=== PATIENT | female | born 1935 | race Caucasian/White ===

== ENCOUNTER → 2017-08-30 10:45 | Outpatient (CLI) | payer MEDICARE, SELFPAY ==
--- NOTE | 2017-08-30 10:51 | MM_ITS ---
MM Dig SC mamm unilat RT CAD CAD Screening ORDERING PHYSICIAN : Alex Rao MD PATIENT AGE: 81 years GENDER: Female HISTORY Routine screening. Right breast cancer with mastectomy.. 81-year-old patient very kyphotic difficult to position. No hormones. No new complaints. Noncontributory family history. COMPARISON: Left mammogram: August 2016. Bilateral mammogram July 2013 TECHNIQUE: Standard CC & MLO images were obtained left breast. . In addition axillary cc view left breast. R2 CAD reviewed. FINDINGS LEFT BREAST: Minimal residual fibroglandular elements. No significant change since previous studies. No dominant mass nor suspicious calcifications. . Follow-up left mammogram 1 year recommended IMPRESSION: Stable left breast. No areas of concern Follow-up in one year BI-RADS Category: 1 Negative RECOMMENDED FOLLOW-UP: 1YR - 1 YEAR FOLLOW-UP (A letter has been sent to the patient regarding results of the study.)
== END ==
PROVIDERS: Family Provider Family Medicine; PCP Family Medicine; Visit Provider Internal Medicine Medical Oncology
DX: Z12.31 Encounter for screening mammogram for malignant neoplasm of breast (principal); C50.911 Malignant neoplasm of unspecified site of right female breast
CPT/HCPCS: 77067

== ENCOUNTER → 2018-09-05 09:05 | Outpatient (CLI) | payer MEDICARE, SELFPAY ==
--- NOTE | 2018-09-05 09:15 | MM_ITS ---
MM Dig SC mamm unilat LT CAD Ordering Physician: Alex Rao MD Patient Age: 82 years Female COMPARISON: August 20172016, July 2013 INDICATION: Left mammogram, screening. History of right breast cancer with right mastectomy. No new hormones. No new complaints. Noncontributory family history. TECHNIQUE: MLO and cc view left breast along with axillary cc view FINDINGS: Lower density breast with moderate generalized fatty replacement. Minimal residual fibroglandular elements towards upper-outer quadrant. No significant new findings at the left breast. Stable overall architecture. IMPRESSION: Stable left breast./Right mastectomy No new areas concern. Left breast Minimal residual fibroglandular elements with lower density left breast BI-RADS Category: 1 Negative RECOMMENDED FOLLOW-UP: 1YR 1 YEAR FOLLOW-UP A letter has been sent to the patient regarding results of the study.)
--- NOTE | 2018-09-05 09:16 | XR_ITS ---
XR DEXA axial skeleton HISTORY: ITS.REASON: POST MENOPAUSAL SCREENING ORDERING PHYSICIAN: Alex Rao MD PATIENT AGE: 82 years COMPARISON: 11/09/2015 FINDINGS: The BMD measured at the Total Left femoral neck is 0.657 g/cm squared with a T score of -2.8. This is considered Osteoporotic according to the World Health Organization criteria. Fracture risk is High. Treatment is advised. The L1-L4 density has a T score of 2.9. There does appear to be sclerosis in the lumbar spine. The lumbar density has increased by 6.8%. The hip density has decreased by 2.5%. Scanogram shows lucencies in the femoral heads on both sides and may be due to subarticular cyst IMPRESSION: Osteoporosis with high fracture risk. Treatment is advised. Suggest follow-up exam August 2019
== END ==
PROVIDERS: PCP Family Medicine; Visit Provider Internal Medicine Medical Oncology
DX: Z78.0 Asymptomatic menopausal state (principal); Z12.31 Encounter for screening mammogram for malignant neoplasm of breast
CPT/HCPCS: 77067; 77080

== ENCOUNTER → 2019-09-10 10:52 | Outpatient (CLI) | payer MEDICARE, SELFPAY ==
--- NOTE | 2019-09-10 10:57 | MM_ITS ---
PROCEDURE: MM DIG SC MAMM UNILAT LT CAD Digital Breast Tomosynthesis Included CLINICAL INDICATION: SCREENING History of right breast cancer with mastectomy COMPARISON: DMSUL DIG MAMM-SCREEN UNI-LT W/CAD from 08/28/2016 SCUNIRT MM Dig SC mamm unilat RT CAD from 08/30/2017 DIG MAMM-SCREEN SHAYNE from 09/05/2018 TECHNIQUE: Standard CC and MLO images and 3D Tomosynthesis was obtained. R2 CAD reviewed. FINDINGS: Average fibroglandular tissue. No malignant appearing mass or malignant-appearing microcalcification. IMPRESSION: BI-RAD Category: 1 Negative FOLLOW-UP: 1YR 1 Year Follow-up (A letter has been sent to the patient regarding results of the study.) Dictated by: Edison Pyle MD 09/12/2019 10:35 Electronically signed by Edison Pyle MD in [place] 09/12/2019 10:35
== END ==
PROVIDERS: PCP Family Medicine; Visit Provider Family Medicine
DX: Z12.31 Encounter for screening mammogram for malignant neoplasm of breast (principal)
CPT/HCPCS: 77063; 77067

== ENCOUNTER → 2020-03-11 12:03 | Outpatient (CLI) | payer MEDICARE, SELFPAY ==
--- NOTE | 2020-03-11 12:11 | XR_ITS ---
PROCEDURE: XR SHOULDER LT MIN 2V CLINICAL INDICATION: LT SHOULDER PAIN Pain following injury COMPARISON: CR XR HUMERUS LT from 03/11/2020 CR XR RIBS LT MIN 3V W CXR1V from 03/11/2020 FINDINGS: There is anterior some subglenoid dislocation of the humeral head. There is a ill-defined bony fragment lateral to the superior aspect of the glenoid consistent with an avulsion fracture. With unknown bone of origin. This measures approximately [address] may provide further evaluation. The mid and distal aspect of the humerus has an unremarkable appearance. IMPRESSION: Anterior inferior humeral head dislocation. There is avulsion fracture fragment lateral to the glenoid of unknown bone of origin. Postreduction CT may provide further evaluation. Dictated by: Edison Pyle MD 03/11/2020 13:13 Edison Pyle MD in [place] 03/11/2020 13:13
--- NOTE | 2020-03-11 12:11 | XR_ITS ---
PROCEDURE: XR RIBS LT MIN 3V W CXR1V CLINICAL INDICATION: LT RIB PAIN COMPARISON: No exams were available for comparison FINDINGS: Frontal view of the chest shows no acute finding. There is thoracolumbar curvature convex right. Calcified granulomas present in the right lower lobe. Patchy density is present in the left lung base and may be due to an area of atelectasis or infiltrate. There are old left-sided rib fractures but no acute fracture apparent. There is inferior dislocation of the humeral head with an avulsion fracture noted lateral to the glenoid. IMPRESSION: 1. No acute rib fracture. 2. Left basilar atelectasis 3. Scoliosis 4. Inferior dislocation of the humeral head with avulsion fracture Dictated by: Edison Pyle MD 03/11/2020 13:16 Edison Pyle MD in [place] 03/11/2020 13:16
--- NOTE | 2020-03-11 12:12 | XR_ITS ---
PROCEDURE: XR ELBOW LT MIN 3V CLINICAL INDICATION: LT ARM PAIN Injury with pain COMPARISON: No exams were available for comparison FINDINGS: No fracture or dislocation. No lytic or blastic change. There is normal mineralization. Minimal osteoarthritic changes are present. No displaced fat pad Other findings:None. IMPRESSION: No acute findings. Dictated by: Edison Pyle MD 03/11/2020 13:09 Edison Pyle MD in [place] 03/11/2020 13:09
== END ==
PROVIDERS: PCP Family Medicine; Visit Provider Physician Assistant
DX: R07.81 Pleurodynia (principal)
CPT/HCPCS: 71101; 73030; 73060; 73080

== ENCOUNTER 2020-03-11 13:46 | Emergency (ER) | payer MEDICARE, SELFPAY ==
[2020-03-11] VITALS (20 sets, daily range): BP systolic 145–236; BP diastolic 81–144; PULSE 64–122; RESP 8–22; TEMP 36.6–36.7; O2SAT 71–100; BMI 25.0
--- NOTE | 2020-03-11 14:08 | HMH.EDGENADL ---
ED Disposition Clinical Impression: Avulsion fracture Shoulder dislocation Qualifiers: Encounter type: initial encounter Laterality: left Qualified Code(s): S43.005A - Unspecified dislocation of left shoulder joint, initial encounter Disposition: Home, Self-Care Condition on Discharge: Fair Instructions: DI for Moderate Sedation Additional Instructions: Follow up with Dr. Hodge early next week for re-evaluation. Do NOT take your arm out of the sling prior to seeing Dr. Hodge next week. Prescriptions: Hydrocodone/Acetaminophen [[place] 5-325 Tablet] 1 each PO Q4-6H PRN #9 tab PRN Reason: pain Prescription Printed Referrals: Nanette Lowery MD [Physician] - 03/15/20 - Critical Care Critical Care Time: No Attestation: On , the high probability of a clinically significant, sudden or life threatening deterioration of the following system(s) required my full and direct attention, intervention and personal management. The time I documented below is in addition to time spent performing reported procedures but includes the following listed in this critical care notation. Medical Decision Making - Medical Records Medical records reviewed: Yes: I reviewed the patient's medical records. - Trevor Inquiry Pt receiving controlled substance: Yes Trevro was queried for this patient: No Reason not queried -: Emergent pt cond-no time Risks and benefits of using a controlled substance: were discussed with pt by me Vital Signs: 03/11/20 13:57 03/11/20 14:17 03/11/20 14:23 Temperature 98 F 98 F Temperature Source Oral Oral Pulse Rate [Radial] 71 101 H 102 H Respiratory Rate 18 20 20 Blood Pressure Blood Pressure [Right Arm] 212/117 H 211/111 H 211/111 H Blood Pressure Mean [Right Arm] 148 144 144 Blood Pressure Source [Right Arm] Automatic Cuff Blood Pressure Position [Right Arm] Sitting Supine Sitting 02 Sat by Pulse Oximetry 98 100 95 Oxygen Delivery Method Room Air Room Air Nasal Cannula Oxygen Flow Rate (LPM) 2 03/11/20 14:45 03/11/20 14:50 03/11/20 14:55 Temperature 98 F Temperature Source Oral Pulse Rate [Radial] 102 H 120 H 122 H Respiratory Rate 18 18 10 L Blood Pressure Blood Pressure [Right Arm] 211/111 H 236/144 H 220/118 H Blood Pressure Mean [Right Arm] 144 174 152 Blood Pressure Source [Right Arm] Blood Pressure Position [Right Arm] Sitting Sitting Sitting 02 Sat by Pulse Oximetry 98 98 98 Oxygen Delivery Method Nasal Cannula Nasal Cannula Nasal Cannula Oxygen Flow Rate (LPM) 2 2 4 03/11/20 15:00 03/11/20 15:05 03/11/20 15:10 Temperature Temperature Source Pulse Rate [Radial] 104 H 87 77 Respiratory Rate 8 L 14 16 Blood Pressure 210/119 H Blood Pressure [Right Arm] 215/116 H 210/119 H 218/108 H Blood Pressure Mean [Right Arm] 149 149 144 Blood Pressure Source [Right Arm] Blood Pressure Position [Right Arm] Sitting Sitting Sitting 02 Sat by Pulse Oximetry 97 98 98 Oxygen Delivery Method Nasal Cannula Nasal Cannula Nasal Cannula Oxygen Flow Rate (LPM) 4 4 4 03/11/20 15:15 03/11/20 15:20 03/11/20 15:30 Temperature Temperature Source Pulse Rate [Radial] 83 68 71 Respiratory Rate 16 22 Blood Pressure Blood Pressure [Right Arm] 218/108 H 198/101 H 182/96 H Blood Pressure Mean [Right Arm] 144 133 124 Blood Pressure Source [Right Arm] Automatic Cuff Blood Pressure Position [Right Arm] Sitting Sitting Sitting 02 Sat by Pulse Oximetry 96 98 Oxygen Delivery Method Nasal Cannula Oxygen Flow Rate (LPM) 4 Orders (Tests/Meds): ED MEDICATIONS Discontinued Medications Generic Name Dose Route Start Last Admin Trade Name Freq PRN Reason Stop Dose Admin Etomidate 10 mg 03/11/20 14:07 03/11/20 14:45 Etomidate 40mg/20ml Vial IV 03/11/20 14:08 10 mg ONCE ONE Administration Sodium Chloride 1,000 mls @ 999 mls/hr 03/11/20 14:30 03/11/20 14:45 Sod Chlor 0.9% 1000ml Bag IV 03/11/20 15:30 999 mls/hr .Q1H1M LIAT Admin
--- NOTE | 2020-03-11 14:52 | PC.NURSE ---
pt with snoring resp jaw thrust performed. athletic monitor ST with michelley
--- NOTE | 2020-03-11 15:01 | XR_ITS ---
PROCEDURE: XR SHOULDER LT 1V CLINICAL INDICATION: post reduction Shoulder dislocation COMPARISON: CR XR SHOULDER LT MIN 2V from 03/11/2020 FINDINGS: There remains anterior infra glenoid dislocation of the humeral head with possible avulsion fracture at the glenoid region. IMPRESSION: No change shoulder dislocation Dictated by: Edison Pyle MD 03/11/2020 16:30 Edison Pyle MD in [place] 03/11/2020 16:30
--- NOTE | 2020-03-11 15:10 | PC.NURSE ---
pt awake, alert, continues to c/o pain lt shoulder
--- NOTE | 2020-03-11 15:30 | PC.NURSE ---
family at bedside updated on plan of care
--- NOTE | 2020-03-11 15:32 | PC.NURSE ---
Dr Lowery called and consulted by Dr Maddox
--- NOTE | 2020-03-11 16:03 | HMH.ORTHOCON ---
*Admission Date: 03/11/20 *Reason for consult:: L shoulder dislocation *History of present illness: 84yo F presents to the ED after being seen by her PCP for L shoulder pain. She fell last night after tripping on an air vent and landing on her left side. She had immediate pain and difficulty using the L shoulder, but no open wounds, no numbness/tingling in the LUE. She tried to treat this at home but her pain persisted today, so she saw her primary care provider. X-rays were done that revealed L glenohumeral joint dislocation. I was called in my office, and I recommended presentation to the ER for sedation and reduction. Closed reduction was attempted x2 by the ER with morphine and etomidate; they were unsuccessful and deeper sedation was not attempted due to decreased respirations in the patient. Currently the patient reports L shoulder pain, no numbness/tingling in the LUE, unable to lift the L arm. No prior injuries to or surgeries on this shoulder reported. She does not take anticoagulants and says she is otherwise in good health. [facility] History I have reviewed the patient's past medical history: Yes Medical History: Reports:: Cancer (breast) *Have you ever received a pneumonia vaccine?: Yes *Have you received a flu vaccine this season?: Yes - *Social History *Occupational Status:: retired *Travel in the last 8 weeks: None Family Hx:: Non-contributory Review of Systems - Review of Systems Review of systems:: pertinent systems reviewed and negative unless documented below Meds Home Medications Medication Instructions Recorded Confirmed Type Hydrocodone/Acetaminophen [[place] 1 each PO Q4-6H PRN #9 tab 03/11/20 Rx 5-325 Tablet] Allergies Allergy/AdvReac Type Severity Reaction Status Date / Time No Known Allergies Allergy Verified 03/11/20 14:03 Exam Vital signs and Labs for Last 24 Hours: Temp Pulse Resp BP Pulse Ox 98 F 87 22 181/86 H 98 03/11/20 14:45 03/11/20 15:30 03/11/20 15:30 03/11/20 15:30 03/11/20 15:30 I & O for Last 24 hours: Intake & Output 03/09/20 03/10/20 03/11/20 03/12/20 11:59 11:59 11:59 11:59 Weight 137 lb - Constitutional no acute distress, average body habitus - *Routine HEENT Exam Head: Present: normocephalic Eye: Present: EOMI ENT: Present: mucous membranes moist Comments: bruising and superficial laceration to bottom lip and bridge of nose - *Routine Neck Exam Present: supple, trachea midline - *Routine Respiratory Exam Absent: respiratory distress, wheezes - *Routine Cardiovascular Exam Present: RRR - *Routine Abdominal Exam Present: soft. Absent: tenderness - *Routine Extremities Exam Comments: L shoulder with mild deformity, humeral head not palpable patient unable to lift L arm SILT distally LUE in m/r/u distributions AIN/PIN/ulnar nerves motor intact LUE palpable radial pulse L wrist, fingers pink/warm - *Routine Skin Exam Present: intact, warm - *Routine Neurological Exam Present: alert, oriented X3, moving all extremities, normal tone, vision grossly intact, hearing grossly intact, normal speech. Absent: sensory deficit, motor deficit, altered mental status Results - Labs Labs: All other labs normal. - Diagnostic results Shoulder x-ray: image reviewed (anteroinferior glenohumeral dislocation L shoulder; possible small avulsion fragment, most likely from greater tuberosity) Assessment and Plan (1) Avulsion fracture Status: Acute Category: Medical Code(s): T14.8XXA - Other injury of unspecified body region, initial encounter (2) Shoulder dislocation Status: Acute Qualifiers: Encounter type: initial encounter Laterality: left Qualified Code(s): S43.005A - Unspecified dislocation of left shoulder joint, initial encounter Category: Medical Code(s): S43.006A - Unspecified dislocation of unspecified shoulder joint, initial encounter - Assessment and plan all Dx Assessment and Plan fo
--- NOTE | 2020-03-11 16:18 | XR_ITS ---
PROCEDURE: XR SHOULDER LT 1V CLINICAL INDICATION: dislocation Attempted postreduction COMPARISON: CR XR SHOULDER LT MIN 2V from 03/11/2020 CR XR SHOULDER LT 1V from 03/11/2020 CR XR SHOULDER LT MIN 2V from 03/11/2020 FINDINGS: 1636 hours Axillary views of the left shoulder show persisted infra glenoid dislocation of the humeral head. IMPRESSION: Persistent infra glenoid dislocation Dictated by: Edison Pyle MD 03/12/2020 05:25 Edison Pyle MD in [place] 03/12/2020 05:25
--- NOTE | 2020-03-11 16:50 | PC.NURSE ---
dr pickett at bedside, anesthesia at bedside
--- NOTE | 2020-03-11 16:50 | PC.NURSE ---
100mg lidocaine ivp per bill purcell
--- NOTE | 2020-03-11 16:55 | PC.NURSE ---
propofol 60mg ivp per bill purcell
--- NOTE | 2020-03-11 16:57 | XR_ITS ---
PROCEDURE: XR SHOULDER LT MIN 2V CLINICAL INDICATION: post reduction Follow-up shoulder dislocation COMPARISON: CR XR SHOULDER LT MIN 2V from 03/11/2020 CR XR SHOULDER LT 1V from 03/11/2020 CR XR SHOULDER LT 1V from 03/11/2020 FINDINGS: There has been interval reduction of the left shoulder dislocation. Humeral head now is in good position. Previously there was a calcific density lateral to the glenoid. This is not well delineated on these images and may be better evaluated with CT if clinically desired. IMPRESSION: Interval reduction of left shoulder dislocation as described Dictated by: Edison Pyle MD 03/11/2020 17:28 Edison Pyle MD in [place] 03/11/2020 17:28
--- NOTE | 2020-03-11 17:12 | PC.NURSE ---
pt awake alert, taking sips of sprite
--- NOTE | 2020-03-11 17:20 | PC.NURSE ---
sling applied to lt arm
--- NOTE | 2020-03-11 17:20 | HMH.PROC ---
[facility] Procedure Note Procedure Note:: Date of Procedure: March 11, 2020 Pre-procedure diagnosis: L shoulder glenohumeral joint dislocation Post-procedure diagnosis: same Procedure: closed reduction L shoulder glenohumeral joint dislocation Performed by: Nanette Lowery MD Air Conditioning Specialist/s: none Anesthesia: IV sedation; performed by PERSONAL [employer]ES SALES EXECUTIVE Estimated Blood Loss: none History of present illness: 84yo F presents to the ED after being seen by her PCP for L shoulder pain. She fell last night after tripping on an air vent and landing on her left side. She had immediate pain and difficulty using the L shoulder, but no open wounds, no numbness/tingling in the LUE. She tried to treat this at home but her pain persisted today, so she saw her primary care provider. X-rays were done that revealed L glenohumeral joint dislocation. I was called in my office, and I recommended presentation to the ER for sedation and reduction. Closed reduction was attempted x2 by the ER with morphine and etomidate; they were unsuccessful and deeper sedation was not attempted due to decreased respirations in the patient. Currently the patient reports L shoulder pain, no numbness/tingling in the LUE, unable to lift the L arm. No prior injuries to or surgeries on this shoulder reported. She does not take anticoagulants and says she is otherwise in good health. Treatment options were discussed with the patient and repeat closed reduction was recommended, with the caveat that if reduction in the ED were unsuccessful I would take her to the OR for closed reduction under general anesthesia and possible open reduction if that failed. Risks of the ED reduction were discussed with the patient, including the risk of respiratory distress/arrest, need for intubation, neurapraxia from limb traction, skin tearing from limb traction, and the possible need for treatment in the operating room if reduction were unsuccessful. The patient vocalized understanding and provided informed consent for the procedure. Procedure Note: The patient was placed in the supine position with the head flat. Consent was reviewed and timeout performed; this identified the correct patient, correct procedure and correct site. Once the patient was sedated, a sheet was placed in the left axilla and countertraction pulled by an assistant press operator offset while I pulled longitudinal traction on the left arm. This was unsuccessful in itself to reduce the shoulder, and additional superiorly-directed manual pressure with my left hand placed directly on the humeral head, in combination with traction on the arm with my right hand, was required to reduce the shoulder. A palpable and audible clunk was felt/heard as the joint reduced. Post-reduction x-rays were taken that confirmed reduction. The patient was placed in a sling and kept on supplemental oxygen as she regained consciousness. The patient tolerated the procedure well without complication. Specimens: none Condition/Disposition: good / home Complications: none
== END 2020-03-11 18:51 | disposition home or self-care (01) ==
PROVIDERS: Emergency Provider Emergency Medicine; PCP Family Medicine
DX: S43.005A Unspecified dislocation of left shoulder joint, initial encounter (principal); W01.0XXA Fall on same level from slipping, tripping and stumbling without subsequent striking against object, initial encounter; Y92.019 Unspecified place in single-family (private) house as the place of occurrence of the external cause
CPT/HCPCS: 23655; 71101; 73020; 73030; 73060; 73080; 96365; 96375; 96376; 99152; 99153; 99285; J2405

== ENCOUNTER → 2020-03-15 13:25 | Outpatient (CLI) | payer MEDICARE, SELFPAY ==
--- NOTE | 2020-03-15 13:29 | XR_ITS ---
PROCEDURE: XR SHOULDER LT MIN 2V CLINICAL INDICATION: LT shoulder --s/p reduction Follow-up dislocation and reduction COMPARISON: CR XR SHOULDER LT MIN 2V from 03/11/2020 CR XR SHOULDER LT 1V from 03/11/2020 CR XR SHOULDER LT MIN 2V from 03/11/2020 CR XR SHOULDER LT 1V from 03/11/2020 FINDINGS: AP view left shoulder shows located humeral head with mild osteoarthritic changes of the AC joint and glenohumeral joint. Only one view submitted. 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
== END ==
PROVIDERS: PCP Family Medicine; Visit Provider Orthopaedic Surgery
DX: S43.005A Unspecified dislocation of left shoulder joint, initial encounter (principal)
CPT/HCPCS: 73030

== ENCOUNTER → 2020-03-29 12:33 | Outpatient (CLI) | payer MEDICARE, SELFPAY ==
--- NOTE | 2020-03-29 12:38 | XR_ITS ---
PROCEDURE: XR SHOULDER LT MIN 2V CLINICAL INDICATION: s/p L shoulder glenohumeral joint dislocation Follow-up dislocation COMPARISON: CR XR SHOULDER LT 1V from 03/11/2020 CR XR SHOULDER LT MIN 2V from 03/11/2020 CR XR SHOULDER LT 1V from 03/11/2020 CR XR SHOULDER LT MIN 2V from 03/15/2020 FINDINGS: The left humeral head remains located on the single AP view the shoulder. Mild osteoarthritic changes are present at the glenohumeral joint. 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
== END ==
PROVIDERS: PCP Family Medicine; Visit Provider Orthopaedic Surgery
DX: S43.006A Unspecified dislocation of unspecified shoulder joint, initial encounter (principal); T14.8XXA Other injury of unspecified body region, initial encounter
CPT/HCPCS: 73030

== ENCOUNTER → 2020-04-19 10:29 | Outpatient (CLI) | payer MEDICARE, SELFPAY ==
--- NOTE | 2020-04-19 10:33 | XR_ITS ---
PROCEDURE: XR SHOULDER LT 1V CLINICAL INDICATION: s/p L shoulder glenohumeral joint dislocation COMPARISON: CR XR SHOULDER LT MIN 2V from 03/11/2020 CR XR SHOULDER LT MIN 2V from 03/11/2020 CR XR SHOULDER LT 1V from 03/11/2020 CR XR SHOULDER LT MIN 2V from 03/15/2020 CR XR SHOULDER LT MIN 2V from 03/29/2020 FINDINGS: Good alignment of the glenohumeral joint with no evidence of dislocation. Faint calcification once again noted along the superior aspect of the humeral head. Other findings:None. IMPRESSION: No evidence of glenohumeral dislocation Dictated by: Edison Pyle MD 04/19/2020 18:11 Edison Pyle MD in [place] 04/19/2020 18:11
== END ==
PROVIDERS: PCP Family Medicine; Visit Provider Orthopaedic Surgery
DX: S43.005A Unspecified dislocation of left shoulder joint, initial encounter (principal)
CPT/HCPCS: 73020

== ENCOUNTER → 2020-05-21 13:19 | Outpatient (CLI) | payer MEDICARE, SELFPAY ==
--- NOTE | 2020-05-21 13:24 | XR_ITS ---
PROCEDURE: XR SHOULDER LT MIN 2V CLINICAL INDICATION: s/p L shoulder glenohumeral joint dislocation Follow-up dislocation COMPARISON: CR XR SHOULDER LT MIN 2V from 03/11/2020 CR XR SHOULDER LT MIN 2V from 03/11/2020 CR XR SHOULDER LT MIN 2V from 03/15/2020 CR XR SHOULDER LT MIN 2V from 03/29/2020 CR XR SHOULDER LT 1V from 04/19/2020 FINDINGS: There is mild diffuse osteopenia. No acute fracture or dislocation is evident. Faint opacity noted along the humeral head superiorly and could be related to residual bone fragment which is less apparent. There are mild osteoarthritic changes of the glenohumeral joint. 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
== END ==
PROVIDERS: PCP Family Medicine; Visit Provider Orthopaedic Surgery
DX: S43.002A Unspecified subluxation of left shoulder joint, initial encounter (principal)
CPT/HCPCS: 73030

== ENCOUNTER → 2020-09-08 12:57 | Outpatient (CLI) | payer MEDICARE, SELFPAY ==
--- NOTE | 2020-09-08 13:00 | MM_ITS ---
PROCEDURE: MM DIG SC MAMM UNILAT LT CAD Digital Breast Tomosynthesis Included CLINICAL INDICATION: SCREENING COMPARISON: MG SCUNIRT MM Dig SC mamm unilat RT CAD from 08/30/2017 MG DIG MAMM-SCREEN SHAYNE from 09/05/2018 MG MM DIG SC MAMM UNILAT LT CAD from 09/10/2019 TECHNIQUE: Standard CC and MLO images and 3D Tomosynthesis was obtained. R2 CAD reviewed. FINDINGS: Breast parenchyma is heterogeneously dense which may lower the sensitivity of mammography. No new dominant mass or indirect evidence of malignancy. No suspicious type microcalcifications. Prior right breast mastectomy. IMPRESSION: Normal left breast digital screening mammograms. BI-RAD Category: 1 Negative FOLLOW-UP: 1 YR 1 Year Follow-up (A letter has been sent to the patient regarding results of the study.) Dictated by: Mark Borges MD 09/09/2020 14:44 Mark Borges MD in [place] 09/09/2020 14:44
== END ==
PROVIDERS: PCP Family Medicine; Visit Provider Family Medicine
DX: Z12.31 Encounter for screening mammogram for malignant neoplasm of breast (principal)
CPT/HCPCS: 77063; 77067

== ENCOUNTER → 2021-10-14 10:08 | Outpatient (CLI) | payer MEDICARE, SELFPAY ==
--- NOTE | 2021-10-14 10:11 | MM_ITS ---
PROCEDURE INFORMATION: Exam: MG Left Screening 3D Mammography Exam date and time: 10/14/2021 10:10 AM Age: 85 years old Clinical indication: Screening examination . Personal history of right mastectomy TECHNIQUE: Imaging protocol: Left Screening tomosynthesis and 2D mammography including computer-aided detection (CAD) when performed. COMPARISON: 1. MG MM DIG SC MAMM UNILAT LT CAD 09/08/2020 1:08 PM 2. MG MM DIG SC MAMM UNILAT LT CAD 09/10/2019 10:57 AM FINDINGS: MAMMOGRAPHY: Breast composition: There are scattered areas of fibroglandular density. Mass: None. Architectural distortion: None. Calcifications: No suspicious calcifications. Asymmetric density: None. Skin thickening: None. Axillary adenopathy: None. Other findings: The patient is status post right mastectomy IMPRESSION: No mammographic evidence of malignancy. Annual screening is recommended unless otherwise clinically indicated. ASSESSMENT: BI-RADS Category 1: Negative
== END ==
PROVIDERS: PCP Family Medicine; Visit Provider Family Medicine
DX: Z12.31 Encounter for screening mammogram for malignant neoplasm of breast (principal)
CPT/HCPCS: 77063; 77067

== ENCOUNTER 2021-12-12 16:47 | Emergency (ER) | payer MEDICARE, SELFPAY ==
[2021-12-12 17:36] VITALS: BP 154/88; PULSE 78; RESP 18; TEMP 36.8; O2SAT 97; BMI 24.7
[2021-12-12 18:08] LABS: UTC Strep Screen (Rapid) Negative (Negative)
--- NOTE | 2021-12-12 18:31 | EXP.UTC ---
Discharge Plan Disposition Patient Disposition: Home, Self-Care Condition: Good Prescriptions Prescriptions: New azithromycin [Zithromax Z-Benitez] 250 mg tablet See Rx Instructions .ROUTE .COMPLEX 5 Days Qty: 6 0RF Rx Instructions: For 250 mg dose pack: take 500 mg today (day 1), then 250 mg for 4 days (days 2-5) Referrals Follow up/Referrals: Umer Esqueda MD [Primary Care Provider] - See instructions Activity Restrictions/Add. Instructions Additional Instructions/Restrictions: *Monitor Temp, Over the counter Motrin or Tylenol as directed/as needed Tylenol every 4 hours and Motrin every 6 hours (as long as your family doctor has told you that you can take it) for fever or pain. and straight to ER if unable to lower temp less than 101.0 after medication given *Warm salt water gargles may help to soothe the throat *Throat Lozenges? *Warm fluids like tea with honey may help to soothe the throat? *Sleep elevated *Humidifier/Vaporizer Your throat swab was sent for culture. Those results are typically sent to your primary care. Be sure to follow up in 2-3 days with your family doctor/primary care physician if no improvement so they can review those result and treat if necessary. If you don?t have a primary care doctor, I recommend you get one but in the mean time, you will have to return to a walk in clinic Follow up IMMEDIATELY for new or worsening symptoms or no Noticeable improvement over the next 48-72 hours. 911 for difficulty breathing or swallowing Clinical Impressions Clinical Impression: Sinusitis Discharge ED Provider: Marian Bowling [facility] General Stated complaint: sore thraot, left ear pain Mode of Arrival: Ambulatory Source of Information: Patient Limitations: No Limitations Time Seen by Provider: 12/12/21 18:31 Description of Symptoms (Recalled from Triage Doc. by RN): pt comes in with c/o sore throat, sinus drainage, and left ear pain that has been going on approx. 1 month. pt states that she had a [facility] appt and was told it was just allergies. pt is still having symptoms HEENT Symptoms (Recalled from RN notes): Yes Resp Symptoms (Recalled from RN notes): No Skin Symptoms (Recalled from RN notes): No MS Symptoms (Recalled from RN notes): No Functional Status (Recalled from RN notes): n/a History of Present Illness Provider Complaint: Patient states that she hasnt felt well for about a month State that she has been having pain in her left ear, sinus congestion and drainage in the back of her throat that is making her throat sore States that she did a telehealth visit about a month ago and thought it was just allergies but it has continued to get worse and now she worries it has turned into something else so she came in Related Data Previous Rx's Medication Instructions Recorded azithromycin 250 mg tablet See Rx Instructions PO .COMPLEX 5 12/12/21 (Zithromax Z-Benitez) days #6 tabs Allergies Allergy/AdvReac Type Severity Reaction Status Date / Time No Known Allergies Allergy Verified 12/12/21 17:38 Worker's Comp Is this a Worker's Comp case?: No PFSH PFSH Social History Smoking Status: Never smoker alcohol intake: never substance use type: denies use current occupational status: retired Travel in the last 8 weeks: None household members: family housing: house ROS Obtained: Yes All systems reviewed & no additional complaints except as documented and Yes Systems reviewed as appropriate & no additional complaints except as documented Constitutional Constitutional: Reports system reviewed and no additional complaints, except as documented and Reports as per HPI ENT Ears, Nose, Mouth, and Throat: Reports system reviewed and no additional complaints, except as documented, Reports as per HPI, Reports otalgia, Reports nasal congestion, Reports nasal discharge and Reports sore throat Cardiovascular Cardiovascular: Reports system reviewe
[2021-12-12 18:53] VITALS: BP 154/88; PULSE 78; RESP 18; TEMP 36.8
== END 2021-12-12 18:53 | disposition home or self-care (01) ==
PROVIDERS: Emergency Provider Nurse Practitioner; PCP Family Medicine
DX: J02.9 Acute pharyngitis, unspecified (principal); H92.02 Otalgia, left ear; J32.9 Chronic sinusitis, unspecified
CPT/HCPCS: 87880; 99213; G0463

== ENCOUNTER 2021-12-22 10:48 | Emergency (ER) | payer MEDICARE, SELFPAY ==
--- NOTE | 2021-12-22 11:16 | EXP.UTC ---
Discharge Plan Disposition Patient Disposition: Home, Self-Care Condition: Good Prescriptions Prescriptions: New benzonatate [benzonatate] 100 mg capsule 100 mg PO TIDP PRN (Reason: Cough) Qty: 30 0RF cefdinir 300 mg capsule 300 mg PO BID Qty: 20 0RF guaifenesin [Mucinex] 600 mg tablet extended release 12hr 600 - 1,200 mg PO BIDP PRN (Reason: Congestion) Qty: 30 0RF No Action azithromycin [Zithromax Z-Benitez] 250 mg tablet See Rx Instructions .ROUTE .COMPLEX 5 Days Qty: 6 0RF Rx Instructions: For 250 mg dose pack: take 500 mg today (day 1), then 250 mg for 4 days (days 2-5) Referrals Follow up/Referrals: Ren Lazaro MD [Primary Care Provider] - See instructions Activity Restrictions/Add. Instructions Additional Instructions/Restrictions: Drink plenty of fluids. Take tylenol or ibuprofen for pain or fever. Take the medications as directed. Follow up with your regular doctor. GO TO THE ER FOR ANY WORSENING SYMPTOMS Clinical Impressions Clinical Impression: Sinusitis, Pharyngitis Instructions Patient Instructions: Sinusitis, DI for Sinusitis Discharge ED Provider: Mark Plata [facility] General Stated complaint: Sore throat, Drainage Time Seen by Provider: 12/22/21 11:17 History of Present Illness Provider Complaint: She states that for the past 2 days she has had a sore throat. It is worse on the left side. She denies fever or chills or body aches. Related Data Previous Rx's Medication Instructions Recorded azithromycin 250 mg tablet See Rx Instructions PO .COMPLEX 5 12/12/21 (Zithromax Z-Benitez) days #6 tabs benzonatate 100 mg capsule 100 mg PO TIDP PRN Cough #30 caps 12/22/21 cefdinir 300 mg capsule 300 mg PO BID #20 caps 12/22/21 guaifenesin 600 mg tablet, 600 - 1,200 mg PO BIDP PRN 12/22/21 extended release 12 hr (Mucinex) Congestion #30 tabs Allergies Allergy/AdvReac Type Severity Reaction Status Date / Time No Known Allergies Allergy Verified 12/12/21 17:38 PFSH [facility] Social History Smoking Status: Never smoker alcohol intake: never substance use type: denies use current occupational status: retired Travel in the last 8 weeks: None household members: family housing: house ROS Obtained: Yes All systems reviewed & no additional complaints except as documented Constitutional Constitutional: Reports chills and Reports fever(s) Eyes Eyes: Denies eye discharge ENT Ears, Nose, Mouth, and Throat: Reports as per HPI Cardiovascular Cardiovascular: Denies chest pain Respiratory Respiratory: Denies chest congestion and Reports cough Gastrointestinal Gastrointestingal: Reports nausea; Denies abdominal pain, constipation, cramping, diarrhea or vomiting Musculoskeletal Musculoskeletal: Denies arthralgias Integumentary/Breasts Skin/Breast: Denies rash Neurologic Neurologic: Denies paresthesias Physical Exam General General appearance: alert and in no apparent distress Head Head exam: atraumatic, normocephalic and normal inspection Eye Eye exam: Present normal appearance, PERRL and EOMI ENT ENT exam: Present mucous membranes moist and normal external ear exam Expanded ENT Exam TM/Canal exam: Bilateral TM: erythema and bulging Nose exam: Absent sinus tenderness Mouth exam: Present normal external inspection; Absent drooling Teeth exam: Present normal inspection Throat exam: Present tonsillar erythema, tonsillomegaly and tonsillar exudate Neck Neck exam: Present normal inspection, full ROM and trachea midline; Absent tenderness, meningismus or lymphadenopathy Chest Chest inspection: Present normal inspection and symmetric chest wall rise; Absent tenderness Respiratory Respiratory exam: Present normal lung sounds bilaterally; Absent respiratory distress, wheezes or stridor Cardiovascular Cardiovascular exam: Present regular rate and normal rhythm; Absent systolic murmur or diastolic mu
[2021-12-22 11:22] VITALS: BP 155/79; PULSE 65; RESP 18; TEMP 36.6; O2SAT 100; BMI 38.7
[2021-12-22 11:56] LABS: UTC Strep Screen (Rapid) Negative (Negative)
[2021-12-22 11:59] VITALS: BP 155/79; PULSE 65; RESP 18; TEMP 36.6; O2SAT 100
== END 2021-12-22 12:04 | disposition home or self-care (01) ==
PROVIDERS: Emergency Provider Nurse Practitioner Family; PCP Family Medicine
DX: J32.9 Chronic sinusitis, unspecified (principal)
CPT/HCPCS: 87880; 99212; G0463

== ENCOUNTER → 2022-10-23 10:01 | Outpatient (CLI) | payer MEDICARE, SELFPAY ==
--- NOTE | 2022-10-23 10:06 | MM_ITS ---
PROCEDURE INFORMATION: Exam: MG Left Screening 3D Mammography Exam date and time: 10/23/2022 10:07 AM Age: 87 years old Clinical indication: Screening mammogram TECHNIQUE: Imaging protocol: Left Screening tomosynthesis and 2D mammography including computer-aided detection (CAD) when performed. COMPARISON: 1. MG MM DIG SC MAMM UNILAT LT CAD 10/14/2021 10:10 AM 2. MG MM DIG SC MAMM UNILAT LT CAD 09/08/2020 1:08 PM 3. MG MM DIG SC MAMM UNILAT LT CAD 09/10/2019 10:57 AM 4. MG DIG MAMM-SCREEN SHAYNE 09/05/2018 9:40 AM FINDINGS: MAMMOGRAPHY: Breast composition: There are scattered areas of fibroglandular density. Mass: None. Architectural distortion: No new or suspicious architectural distortion. Calcifications: No new or suspicious calcifications are present Asymmetric density: No new or suspicious asymmetric density is present Skin thickening: None. Axillary adenopathy: None. IMPRESSION: No mammographic evidence of malignancy. Recommend annual screening mammography unless otherwise clinically indicated. ASSESSMENT: BI-RADS category 1: Negative
== END ==
PROVIDERS: PCP Family Medicine; Visit Provider Family Medicine
DX: Z12.31 Encounter for screening mammogram for malignant neoplasm of breast (principal)
CPT/HCPCS: 77063; 77067

== ENCOUNTER 2023-09-02 08:07 | Emergency (ER) | payer MEDICARE, SELFPAY ==
[2023-09-02 08:15] VITALS: BP 163/56; PULSE 65; RESP 20; TEMP 36.4; O2SAT 98; BMI 22.3
--- NOTE | 2023-09-02 08:36 | EXP.UTC ---
Discharge Plan Disposition Patient Disposition: Home, Self-Care Condition: Good Prescriptions Prescriptions: New cephalexin 500 mg tablet 500 mg PO BID 10 Days Qty: 20 0RF triamcinolone acetonide 0.025 % cream 1 applic topical BID Qty: 15 0RF Referrals Follow up/Referrals: Umer Esqueda MD [Primary Care Provider] - See instructions Clinical Impressions Clinical Impression: Insect bite Instructions Patient Instructions: DI for Insect Bites and Stings, How to Care for an Insect Bite or Sting [facility]charge [facility] [facility] [place] Stated complaint: right hand swelling Mode of Arrival: Ambulatory Source of Information: Patient and Relative Limitations: No Limitations Time Seen by Provider: 09/02/23 08:36 Description of Symptoms (Recalled from Triage Doc. by RN): PATIENT REPORTS REDNESS, SWELLING, AND ITCHING TO LEFT HAND AFTER GETTING STUNG BY A BEE ON SUNDAY HEENT Symptoms (Recalled from RN notes): No Resp Symptoms (Recalled from RN notes): No Skin Symptoms (Recalled from RN notes): Yes MS Symptoms (Recalled from RN notes): No Functional Status (Recalled from RN notes): WNL History of Present Illness Provider Complaint: 87 yr old female presents for swollen painful left hand. pt states she was getting bird feed out and put her hand into a cup and something bite/stung her, did not see what it was. pt states this happened on sunday and the redness and swelling has increased. Related Data Previous Rx's Medication Instructions Recorded cephalexin 500 mg tablet 500 mg PO BID 10 days #20 tabs 09/02/23 triamcinolone acetonide 0.025 % 1 applic topical BID #15 grams 09/02/23 topical cream Allergies Allergy/AdvReac Type Severity Reaction Status Date / Time No Known Allergies Allergy Verified 02/06/22 11:00 Worker's Comp Is this a Worker's Comp case?: No [facility] Disclaimer: The information contained in this section may have been updated after the patient was seen, as this information can be updated by other users. 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: Never smoker alcohol intake: never substance use type: denies use current occupational status: retired Travel in the last 8 weeks: None household members: family housing: house ROS Obtained: Yes All systems reviewed & no additional complaints except as documented Constitutional Constitutional: Reports system reviewed and no additional complaints, except as documented Eyes Eyes: Reports system reviewed and no additional complaints, except as documented ENT Ears, Nose, Mouth, and Throat: Reports system reviewed and no additional complaints, except as documented Cardiovascular Cardiovascular: Reports system reviewed and no additional complaints, except as documented Respiratory Respiratory: Reports system reviewed and no additional complaints, except as documented Gastrointestinal Gastrointestingal: Reports system reviewed and no additional complaints, except as documented Musculoskeletal Musculoskeletal: Reports system reviewed and no additional complaints, except as documented Integumentary/Breasts Skin/Breast: Reports system reviewed and no additional complaints, except as documented, Reports as per HPI, Reports redness, Reports pruritus and Reports skin swelling Neurologic Neurologic: Reports system reviewed and no additional complaints, except as documented Endocrine Endocrine: Reports system reviewed and no additional complaints, except as documented Hematologic/Lymphatic Henatologic/Lymphatic: Reports system reviewed and no additional complaints, except as documented Allergic/Immunologic Allergic/Immunologic: Reports system reviewed and no additional complaints, except as documented Physical Exam General General appearance: alert and in no apparent distress Head Head exam: atraumatic Eye Eye exam: Present normal appearance and PERRL Respiratory Respiratory exam: Present normal lung sounds bilaterally Cardiovascular Cardiovascular exam: Present regular rate and normal rhythm Neurological Exam Neurological exam: Present alert and oriented X3 Skin Skin exam: Present warm and intact Medical Decision Making Medical Records Medical records reviewed: Yes I reviewed the patient's medical records. Trevor Inquiry Pt receiving controlled substance: No Trevor was queried for this patient: No Vital Signs: 09/02/23 08:15 Temperature 97.6 F Temperature Source Oral Pulse Rate [Left Brachial] 65 Respiratory Rate 20 Blood Pressure [Left Arm] 163/56 H Blood Pressure Mean [Left Arm] 91 Blood Pressure Source [Left Arm] Automatic Cuff Blood Pressure Position [Left Arm] Sitting 02 Sat by Pulse Oximetry 98 Oxygen Delivery Method Room Air
[2023-09-02 08:47] VITALS: BP 163/56; PULSE 65; RESP 20; TEMP 36.4; O2SAT 98
== END 2023-09-02 08:48 | disposition home or self-care (01) ==
PROVIDERS: Emergency Provider Nurse Practitioner Family; PCP Family Medicine
DX: S60.562A Insect bite (nonvenomous) of left hand, initial encounter (principal); M79.642 Pain in left hand; R22.32 Localized swelling, mass and lump, left upper limb; W57.XXXA Bitten or stung by nonvenomous insect and other nonvenomous arthropods, initial encounter
CPT/HCPCS: 99212; 99214; G0463

== ENCOUNTER 2023-10-23 07:47 | Outpatient (CLI) | payer MEDICARE, SELFPAY ==
--- NOTE | 2023-10-23 07:55 | MM_ITS ---
PROCEDURE INFORMATION: Exam: MG Left Screening 3D Mammography Exam date and time: 10/23/2023 7:45 AM Age: 88 years old Clinical indication: Screening examination; Personal history of right breast cancer; Mastectomy TECHNIQUE: Imaging protocol: Left Screening tomosynthesis and 2D mammography including computer-aided detection (CAD) when performed. COMPARISON: 1. MG MM DIG SC MAMM UNILAT LT CAD 10/23/2022 10:07 AM 2. MG MM DIG SC MAMM UNILAT LT CAD 10/14/2021 10:10 AM FINDINGS: MAMMOGRAPHY: Breast composition: There are scattered areas of fibroglandular density. Mass: None. Architectural distortion: None. Calcifications: No suspicious calcifications. Asymmetric density: None. Skin thickening: None. Axillary adenopathy: None. The patient is status post right mastectomy IMPRESSION: No mammographic evidence of malignancy. Annual screening is recommended unless otherwise clinically indicated. ASSESSMENT: BI-RADS Category 1: Negative
== END 2023-10-23 23:59 | disposition home or self-care (01) ==
LOC: RAD 07:48
PROVIDERS: PCP Family Medicine; Visit Provider Family Medicine
DX: Z12.31 Encounter for screening mammogram for malignant neoplasm of breast (principal); Z85.3 Personal history of malignant neoplasm of breast
CPT/HCPCS: 77063; 77067